=== PATIENT | female | born 1945 | race Caucasian/White ===

== ENCOUNTER 2016-07-15 00:23 | Day surgery (SDC) | payer MEDICARE, OTHER ==
[2016-07-15] VITALS (7 sets, daily range): BP systolic 102–147; BP diastolic 49–77; PULSE 54–67; RESP 16–17; O2SAT 93–99
[~2016-07-15] VITALS: Ht 160 cm; Wt 47.0 kg
[~2016-07-15 00:23] MED LIST: ASPI-973 PO; LEVO75TA4 PO; SENN8.8S9 PO; SERT50TA PO
[2016-07-15] MEDS ORDERED: fentaNYL-PF 50 mCg/mL 2 mL Inj IVPUSH PRN (06:00)
[2016-07-15] MEDS ORDERED: 0.9% Sodium Chloride 1,000 ML IV SCH (06:00)
[2016-07-15] MEDS ORDERED: Sodium Chloride LOK Flush 10 mL Syringe IV PRN (06:00)
--- NOTE | 2016-07-16 07:55 | ENDO ---
[address] [address] ENDOSCOPY PROCEDURE PATIENT: ZEE SHERIDAN : 1945 MR#: [id number] ADMIT: 07/15/2016 JOB ID: [id number] DATE OF SERVICE: 07/15/2016 PROCEDURE: Esophagogastroduodenoscopy. INDICATION: Weight loss. ASA CLASSIFICATION: II MALLAMPATI SCORE: 2 MEDICATIONS: Versed 6 mg, fentanyl 150 mcg. INSTRUMENT USED: GIF-H180J. PROCEDURE DETAILS: After informed consent was obtained, the patient was brought into the GI suite where she was placed on oxygen via nasal cannula and monitored with continuous pulse oximeter, telemetry, and blood pressure monitoring. A time-out was performed. Then, she was placed in a left lateral decubitus position and medications were administered for sedation. A bite block was placed. The standard esophagogastroduodenoscopy scope was then inserted through the bite block and advanced under direct visualization to the second portion of duodenum without difficulty. FINDINGS: 1. Normal-appearing duodenal bulb, first and second portion. Multiple random biopsies were obtained. 2. Normal-appearing pylorus. 3. In the antrum, there was a thickened fold at the 9 o'clock position. Multiple biopsies were obtained. 4. The mucosa otherwise in the antrum and body of the stomach was atrophic, and there was loss of normal rugal folds. Multiple random biopsies were obtained. 5. Retroflexed views in the gastric body revealed otherwise normal-appearing cardia and fundus. Again, the mucosa appeared atrophic. 6. The GE junction was at approximately 40 cm. Arising from the GE junction, there were some short tongues of salmon-colored mucosa suggestive of Abdi's. Multiple biopsies were obtained. The remainder of esophagus was otherwise unremarkable. IMPRESSION: 1. Thickened antral fold. 2. Atrophic gastric mucosa. 3. Irregular gastroesophageal junction. RECOMMENDATIONS: Await biopsy results and proceed to colonoscopy. COMPLICATIONS: None. ESTIMATED BLOOD LOSS: Less than 5 mL.
--- NOTE | 2016-07-16 07:57 | ENDO ---
[address] [address] ENDOSCOPY PROCEDURE PATIENT: ZEE SHERIDAN : 1945 MR#: [id number] ADMIT: 07/15/2016 JOB ID: [id number] DATE OF SERVICE: 07/15/2016 PROCEDURE: Colonoscopy. INDICATION: Weight loss. ASA CLASSIFICATION: II MALLAMPATI SCORE: 2 MEDICATIONS: Versed 6 mg, fentanyl 150 mcg. INSTRUMENT USED: GIF-H180J as well as PCF-H180AL. PREP QUALITY: Good. PROCEDURE DETAILS: After completion of the EGD exam, the patient was turned and a digital rectal exam was performed which was unremarkable. The pediatric colonoscope was inserted into the rectum and advanced to approximately 30 cm. Here, there was a fixed loop of bowel that we were unable to traverse with the pediatric colonoscope despite application of abdominal pressure and the application of gentle pressure on the scope forward. At this point, the pediatric colonoscope was then withdrawn and the upper endoscope was introduced into the rectum. We were then able to advance the scope to the cecum, which was identified by the presence of the ileocecal valve and appendiceal orifice. Once the cecum was reached, the standard upper endoscope was then withdrawn back into the rectum as the mucosa and lumen were examined. In the rectum, retroflexion was performed. Following retroflexion, remaining air in the rectum was suctioned and procedure was completed. FINDINGS: 1. In the ascending colon, there was an approximately 4 mm sessile polyp which was removed with a cold snare. 2. The remainder of the exam was otherwise unremarkable. IMPRESSION: Ascending colon polyp. RECOMMENDATIONS: 1. Repeat colonoscopy pending polyp pathology results. 2. No findings to explain patient's weight loss. 3. Follow up in GI clinic. COMPLICATIONS: None. ESTIMATED BLOOD LOSS: Less than 5 mL.
--- NOTE | 2016-07-18 15:43 | PATH ---
SURGICAL PATHOLOGY Attending Physician:Cl Arango CASE STATUS: Signed Out PATIENT NAME: ZEE SHERIDAN PID: [id number] : 1945 DATE COLLECTED:07/15/2016 00:00 SPECIMEN: 1: Duodenum, Biopsy 2: Stomach, Antrum, Biopsy 3: Esophagus, Biopsy 4: Gastric, Biopsy 5: Colon, Biopsy CLINICAL HISTORY: 1). DUODENAL BIOPSY 2). THICKENED FOLD BIOPSY ANTRUM 3). DISTAL ESOPHAGUS 4). RANDOM GASTRIC 5). TRANSVERSE POLYP FINAL DIAGNOSIS: 1.DUODENUM BIOPSY: FRAGMENTS OF NORMAL-APPEARING SMALL BOWEL MUCOSA. Normal delicate mucosal villi present. Negative for significant inflammation, dysplasia and malignancy. 2.BIOPSY, THICKENED FOLD, GASTRIC ANTRUM: FOCAL CHRONIC GASTRITIS INVOLVING ANTRAL MUCOSA. Negative for evidence of Helicobacter. Negative for intestinal metaplasia. Negative for dysplasia and malignancy. 3.DISTAL ESOPHAGUS BIOPSY: FRAGMENTS OF SQUAMOUS MUCOSA AND GASTRIC CARDIA-TYPE MUCOSA NEGATIVE FOR SPECIALIZED METAPLASIA OF LIMON' S-TYPE ESOPHAGUS. FOCAL PANCREATIC ACINAR METAPLASIA. Negative for dysplasia and malignancy. Negative for squamous intraepithelial eosinophils. 4.RANDOM GASTRIC BIOPSIES: MODERATE CHRONIC GASTRITIS, FOCALLY ACTIVE, INVOLVING ANTRAL MUCOSA. Immunohistochemistry for Helicobacter pending, to be reported by addendum. POSITIVE FOR INTESTINAL METAPLASIA. Negative for dysplasia and malignancy. 5.TRANSVERSE COLON POLYP: TUBULAR ADENOMA. ICD10 K29.70 GROSS DESCRIPTION: The specimen is received in five formalin filled containers labeled with the patient's name. 1). The specimen is sublabeled "duodenal" and consists of 2 portions is tissue which aggregate to 0.3 x 0.2 x 0.2 CM. The specimen is entirely submitted in cassette 1A. 2). The specimen is sublabeled "thickened antrum fold" and consists of 2 portions of tissue which aggregate to 0.3 x 0.3 x 0.2 CM. The specimen is entirely submitted in cassette 2A. 3). The specimen is sublabeled "distal esophagus" and consists of 2 portions of tissue which aggregate to 0.2 x 0.2 x 0.1 CM. The specimen is entirely submitted in cassette 3A. 4). The specimen is sublabeled "random gastric" and consists of 4 portions of tissue which aggregate to 0.3 x 0.3 x 0.2 CM. The specimen is entirely submitted in cassette 4A. 5). The specimen is sublabeled "transverse polyp" and consists of a 0.3 x 0.2 x 0.2 CM portion of tissue which is entirely submitted in cassette 5A. 07/16/2016 [facility] MICRO DESCRIPTION: See diagnosis. ICD-9 CODES: CPT CODES: 1: 51441, 48825 2: 76943 3: 20426 4: 18230, 96314 5: 68706, 60565 PROCEDURE/ADDENDA: Immunohistochemistry SPI Interpretation {Not Entered} Results-Comments [id number] Immunohistochemistry results: 4.Random Gastric Biopsies: Negative for Helicobacter pylori by immunohistochemistry. This test was developed and its performance characteristics determined by [facility]. It has not been cleared or approved by the [place]. Food and Drug Administration. The FDA has determined that such clearance or approval is not necessary. This test is used for clinical purposes. It should not be regarded as investigational or for research. Electronically Signed Out Ziggy Pedersen MD Electronically Signed Out Ziggy Pedersen MD [facility] Pathology [facility] [address], [place] [address] Technical component performed at [facility], [facility] [address], [place], [address]
== END 2016-07-15 23:59 | disposition home or self-care (01) ==
LOC: END 00:23
PROVIDERS: ATTEND Internal Medicine Gastroenterology
DX: D12.3 Benign neoplasm of transverse colon (principal); K29.50 Unspecified chronic gastritis without bleeding; R63.4 Abnormal weight loss; I25.2 Old myocardial infarction; G31.84 Mild cognitive impairment of uncertain or unknown etiology; I82.409 Acute embolism and thrombosis of unspecified deep veins of unspecified lower extremity; I26.99 Other pulmonary embolism without acute cor pulmonale; L93.0 Discoid lupus erythematosus; E07.9 Disorder of thyroid, unspecified; F43.8 Other reactions to severe stress; Z79.82 Long term (current) use of aspirin
CPT/HCPCS: 43239; 45380; 88305; 88342; 99153; G0500; J7030